=== PATIENT | male | born 1955 | race Caucasian/White ===

== ENCOUNTER → 2022-03-09 14:38 | Outpatient (CLI) | payer OTHER, SELFPAY ==
--- NOTE | ~2022-03-09 | CT_ITS ---
EXAMINATION: CT abdomen pelvis wo con DATE: 03/09/2022 14:54 INDICATION: Left-sided abdominal pain for 1.5 weeks. Nausea. TECHNIQUE: Computed tomography (CT) of the abdomen and pelvis was performed without intravenous contr ast. Automated exposure control and iterative reconstruction technique were employed. Exam dose: 816 .47 mGy-cm total exam DLP. COMPARISON: None. FINDINGS: The lung bases are clear. Normal heart size. No pericardial or pleural effusion. Mild gynec omastia. The liver, gallbladder, bile ducts, pancreas and pancreatic duct appear normal. There are numerous calcified splenic granulomas. Normal splenic size. Normal morphology of the adrenal glands. There is some scarring at the lower pole the right kidney. No renal mass lesion or urinary tract calc ulus or hydroureteronephrosis. Moderate prostate enlargement and mild calcification. The urinary blad rodri appears unremarkable. Normal appendix. No bowel obstruction, bowel wall thickening, pneumatosis or intraperitoneal free air . There is atherosclerotic calcification but normal caliber of the abdominal aorta. No intraperitoneal or retroperitoneal or pelvic mass lesion or adenopathy or ascites is detected. Small fat-containing right inguinal and umbilical hernias. Included skeletal structures are unremarkable. IMPRESSION: Normal appendix Reviewed, dictated and finalized at [facility]. Reviewed, dictated and finalized at location B. T CAPTAIN IMPRESSION: Normal appendix
== END ==
PROVIDERS: PCP Family Medicine; Visit Provider Physician Assistant Medical
DX: R10.9 Unspecified abdominal pain (principal)
CPT/HCPCS: 74176

== ENCOUNTER 2025-03-26 18:07 | Emergency (ER) | payer MEDICARE, SELFPAY ==
--- NOTE | ~2025-03-26 | XR_ITS ---
XR chest 2V HOSTORY: cp COMPARISON:[ None] FINDINGS: Frontal and lateral views of the chest were obtained. The lungs are clear. The heart size is normal in size. Pulmonary vasculature is unremarkable. Osseous structures are intact. IMPRESSION: No acute lung findings.] [ ] Reviewed, dictated and finalized at location S. BANDING MACHINE OFFBEARER
--- NOTE | 2025-03-26 18:09 | ECG_ITS ---
Test Date: 2025-03-26 18:13:07 Measurements Intervals [place] Rate: 76 P: 61 DE: 186 QRS: -33 QRSD: 92 T: 28 QT: 372 QTc: 418 Interpretive Statements SINUS RHYTHM LEFT AXIS DEVIATION LEFT ATRIAL ENLARGEMENT POOR R WAVE PROGRESSION BORDERLINE T WAVE ABNORMALITY- INFERIOR LEADS BASELINE ARTIFACT- I, II, III, AVR, AVL, AVF, V1, V3-V6 BORDERLINE ECG No previous ECG available for comparison Electronically Signed On 03-26-2025 18:27:40 CREDIT HISTORIAN by James Lechuga D.O.
[2025-03-26 18:15] VITALS: BP 180/80; PULSE 76; RESP 16; TEMP 36.6; O2SAT 100
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
[2025-03-26 18:40] LABS: Hematocrit 47.8 % (42.0-52.0); Hemoglobin 15.8 g/dL (14.0-18.0); Immature Granulocyte Percent A 0.3 % (0-0.5); Lymphocytes Absolute Auto 1.96 K/mm3 (0.9-3.2); Mean Corpuscular HGB Conc 33.1 g/dl (32-36); Mean Corpuscular Hemoglobin 31.1 pg (26-34); Mean Corpuscular Volume 94.1 fl (80-100); Nucleated Red Blood Cells Absolute Auto 0.000 K/mm3 (0.0-0.012); Nucleated Red Blood Cells Perc 0.0 % (0.0-0.2); Platelet Count Result 184 k/mm3 (150-375); Red Blood Count 5.08 M/mm3 (4.6-6.20); White Blood Count 6.1 K/mm3 (4.5-10.0)
[2025-03-26 18:45] LABS: Alanine Aminotransferase 53 U/L (6-50); Albumin Level 4.9 g/dL (3.5-5.1); Alkaline Phosphatase 47 U/L (38-126); Anion Gap 10 mmol/L (4-12); Aspartate Amino Transferase 41 U/L (17-59); Bilirubin,Total 0.6 mg/dL (0.2-1.3); Blood Urea Nitrogen 16 mg/dL (9-20); Calcium 9.5 mg/dL (8.4-10.2); Carbon Dioxide 24 mmol/L (22-30); Chloride 105 mmol/L (98-107); Estimated CRCL calculation 106 ml/min; Estimated Glomerular Filt Rate > 60; Glucose 108 mg/dL (65-110); Lipase 80 U/L (23-300); Potassium 3.8 mmol/L (3.4-5.0); Sodium 139 mmol/L (137-145); Total Protein 8.1 g/dL (6.3-8.2)
[2025-03-26 18:54] LABS: NT Pro B Type Natriuretic Pept < 20 pg/mL (19.9-100)
[2025-03-26 18:56] LABS: INR 0.9; Prothrombin Time 12.2 Seconds (11.1-14.7)
[2025-03-26 18:57] LABS: Partial Thromboplastin Time 26.7 Seconds (22.3-36.8); Troponin I < 0.012 ng/mL (0.000-0.034)
--- NOTE | 2025-03-26 21:29 | ECG_ITS ---
Test Date: 2025-03-26 22:20:30 Measurements Intervals [place] Rate: 60 P: 46 MO: 194 QRS: -31 QRSD: 102 T: 16 QT: 404 QTc: 406 Interpretive Statements SINUS RHYTHM LEFT AXIS DEVIATION PATTERN CONSISTENT WITH PULMONARY DISEASE BORDERLINE T WAVE ABNORMALITY- INFERIOR LEADS BASELINE ARTIFACT- I, II, AVR, AVL, AVF BORDERLINE ECG Compared to ECG 03/26/2025 18:13:07 NO SIGNIFICANT CHANGE Electronically Signed On 03-27-2025 06:16:58 SHIP SCALER by James Lechuga D.O.
[2025-03-26 22:14] VITALS: BP 146/82; PULSE 67; RESP 14; TEMP 36.6; O2SAT 98
[2025-03-26 22:37] LABS: Troponin I < 0.012 ng/mL (0.000-0.034)
== END 2025-03-27 | disposition home or self-care (01) ==
PROVIDERS: Registered Nurse; Student in an Organized Health Care Education/Training Program; PCP Student in an Organized Health Care Education/Training Program
DX: R07.9 Chest pain, unspecified (principal)
CPT/HCPCS: 36415; 71046; 80053; 83690; 83880; 84484; 85025; 85380; 85610; 85730; 93005; 99284; A9270